=== PATIENT | female | born 1995 ===

== ENCOUNTER 2019-05-16 20:12 | Inpatient (IN) ==
[2019-05-16] MEDS ORDERED: PROPOFOL 200 MG/20 ML VIAL IV ONE (23:34)
[2019-05-16] MEDS ORDERED: BENZOCAINE/MENTHOL LOZENGE 18/BOX PO PRN (23:35)
[2019-05-16] MEDS ORDERED: ONDANSETRON 4 MG/2 ML VIAL ONE (23:35)
[2019-05-16] MEDS ORDERED: ACETAMINOPHEN 325 MG TABLET PO PRN (23:35)
[2019-05-16] MEDS ORDERED: ACETAMINOPHEN 1,000 MG/100 ML VIAL IV ONE (23:35)
[2019-05-16] MEDS ORDERED: SEVOFLURANE 1 UNIT/15 MINUTE INH ONE (23:35)
[2019-05-16] MEDS ORDERED: MAGNESIUM HYDROXIDE SUSP 30 ML UDCUP PO PRN (23:35)
[2019-05-16] MEDS ORDERED: MIDAZOLAM 2 MG/2 ML VIAL ONE (23:35)
[2019-05-16] MEDS ORDERED: ONDANSETRON 4 MG/2 ML VIAL IV PRN (23:35)
[2019-05-16] MEDS ORDERED: fentaNYL 100 MCG/2 ML VIAL ONE (23:35)
[2019-05-16] MEDS ORDERED: DOCUSATE SODIUM 100 MG CAPSULE PO PRN (23:35)
[2019-05-16] MEDS ORDERED: BISACODYL 10 MG SUPP RECTAL PRN (23:35)
[2019-05-16] MEDS ORDERED: SUCCINYLCHOLINE 200 MG/10 ML VIAL ONE (23:36)
[2019-05-16] MEDS ORDERED: LACTATED RINGERS 1,000 ML IV ONE (23:36)
[2019-05-16] MEDS ORDERED: LACTATED RINGERS 1,000 ML IV SCH (23:45)
[2019-05-17] MEDS ORDERED: MEPERIDINE 25 MG/1 ML VIAL IV PRN (00:46)
[2019-05-17] MEDS: ceFAZolin 1,000 MG in SYRINGE 1 EACH IV SCH ×2 (05:37→15:26)
[2019-05-17 05:46] LABS: Basophils % 0.5 % (0.0-0.8); Eosinophils % 0.7 % (0.00-10.9); Hematocrit 31.5 VOL% (35.7-47.0); Immature Granulocytes % 0.7 %; Immature Granulocytes Absolute 0.04 #; Lymphocytes # 1.3 10*3/uL (1.4-4.0); Lymphocytes % 21.6 % (21.3-54.2); Mean Corpuscular HGB Conc 31.7 GM/DL (32-36); Mean Corpuscular Volume 98.4 FL (87-102); Mean Platelet Volume 9.4 FL (9.6-12.0); Monocytes % 7.2 % (1.7-12.7); Neutrophils % 69.3 % (38.7-73.9); Platelet Count 199 T/CUMM (130-400); Red Cell Distribution Width 13.1 % (9.3-17.3); White Blood Count 5.8 T/CUMM (4-12)
[2019-05-17] MEDS: IBUPROFEN 800 MG TABLET PO PRN ×2 (08:58→20:10)
[2019-05-17] MEDS ORDERED: ceFAZolin 1,000 MG in SYRINGE 1 EACH IV ONE (15:01)
[2019-05-17 19:56] VITALS: BP 110/71
== END 2019-05-17 22:35 | disposition left against medical advice (07) | DRG 819 ==
LOC: EDUNIT# → N.ED 20:12 → N.EDINP 23:34 → N.OB 23:40
PROVIDERS: ADMIT Obstetrics & Gynecology; ATTEND Obstetrics & Gynecology

== ENCOUNTER 2021-07-11 09:07 | Inpatient (IN) ==
[2021-07-11] MEDS ORDERED: LABETALOL 100 MG TABLET PO ONE (10:39)
[2021-07-11 11:30] LABS: Bilirubin,Urine Negative (Negative); Blood, Urine Negative (Negative); Glucose,Urine (UA) >=500 mg/dL (Negative); Ketones,Urine 20 mg/dL (Negative); Mucus,Urine Occasional /LPF (Occasional); Nitrite,Urine Negative (Negative); Protein,Urine 30 MG/DL; RBC,Urine 1 /HPF (0-4); Squamous Epithelial Cell,Urine Occasional /HPF (0-10); Urine Appearance CLEAR (Clear); Urine Color Amber (Yellow); Urine Specific Gravity 1.016 (1.001-1.035); Urine Urobilinogen < 2.0 EU/DL (0.2-1.0)
[2021-07-11 11:50] LABS: Basophils % 0.2 % (0.0-0.8); Hematocrit 31.8 VOL% (35.7-47.0); Immature Granulocytes % 0.9 %; Immature Granulocytes Absolute 0.04 #; Lymphocytes # 0.6 10*3/uL (1.4-4.0); Lymphocytes % 11.9 % (21.3-54.2); Mean Corpuscular HGB Conc 31.4 GM/DL (32-36); Mean Corpuscular Volume 91.1 FL (87-102); Mean Platelet Volume 9.8 FL (9.6-12.0); Monocytes % 6.3 % (1.7-12.7); Neutrophils % 80.7 % (38.7-73.9); Platelet Count 204 T/CUMM (130-400); Red Blood Count 3.49 MC/CUMM (3.8-5.5); Red Cell Distribution Width 14.3 % (9.3-17.3); White Blood Count 4.6 T/CUMM (4-12)
[2021-07-11 12:05] LABS: Protein/Creatinine Ratio,Urine 0.6 RATIO
[2021-07-11 12:08] LABS: INR 0.9; PT Patient Result 10.3 SECS (10.5-12.0); Partial Thromboplastin Time 30.8 SECS (23.9-33.8)
[2021-07-11 12:09] LABS: Alanine Aminotransferase 52 U/L (13-56); Albumin 2.2 G/DL (3.4-5.0); Alkaline Phosphatase 163 U/L (45-117); Aspartate Amino Transferase 94 U/L (0-37); Bilirubin,Direct < 0.100 MG/DL (0.0-0.20); Bilirubin,Total < 0.39 MG/DL (0.20-1.00); Blood Urea Nitrogen 7 MG/DL (7-18); Calcium 8.3 MG/DL (8.5-10.1); Carbon Dioxide 20 MMOL/L (21-32); Estimated Glom Filtration Rate 150 ML/MIN; Glucose 168 MG/DL (74-106); Potassium 3.6 MMOL/L (3.5-5.1); Sodium 136 MMOL/L (136-145); Total Protein 5.9 G/DL (6.4-8.2); Uric Acid 5.1 MG/DL (2.6-6.0)
[2021-07-11] MEDS ORDERED: DEXTROSE 50% 25 GM/50 ML VIAL IV PRN ×2 (12:46→15:10)
[2021-07-11] MEDS ORDERED: GLUCAGON 1 MG VIAL IM PRN (12:46)
[2021-07-11] MEDS ORDERED: BETAMETH SODIUM PHOS/ACETATE 30 MG/5 ML VIAL IM SCH (13:00)
[2021-07-11] MEDS ORDERED: metFORMIN 500 MG TABLET PO SCH (17:00)
[2021-07-11] MEDS ORDERED: INSULIN LISPRO 100 UNIT/ML SUBCUT SCH (17:00)
[2021-07-11] MEDS: INSULIN REGULAR 100 UNIT/ML SUBCUT SCH ×2 (17:01→21:56)
[2021-07-11] MEDS ORDERED: INSULIN NPH 100 UNIT/ML SUBCUT SCH (21:00)
[2021-07-11] MEDS ORDERED: ZALEPLON 5 MG CAPSULE PO ONE (21:01)
[2021-07-11] MEDS: LABETALOL 100 MG TABLET PO SCH (21:58)
[2021-07-12] MEDS ORDERED: OXYTOCIN/LR 20 UNIT/1,000 ML BAG IV ONE ×4 (06:10→21:13)
[2021-07-12 07:49] LABS: Hematocrit 33.5 VOL% (35.7-47.0); Hemoglobin 10.3 GM/DL (12.0-16.0); Immature Granulocytes % 1.2 %; Immature Granulocytes Absolute 0.04 #; Lymphocytes # 0.6 10*3/uL (1.4-4.0); Lymphocytes % 18.4 % (21.3-54.2); Mean Corpuscular HGB Conc 30.7 GM/DL (32-36); Mean Corpuscular Volume 93.6 FL (87-102); Mean Platelet Volume 9.8 FL (9.6-12.0); Monocytes % 7.8 % (1.7-12.7); NRBC # 0.03 10*3/uL; Neutrophils % 72.6 % (38.7-73.9); Platelet Count 201 T/CUMM (130-400); Red Blood Count 3.58 MC/CUMM (3.8-5.5); Red Cell Distribution Width 14.5 % (9.3-17.3); White Blood Count 3.2 T/CUMM (4-12)
[2021-07-12] MEDS ORDERED: INSULIN LISPRO 100 UNIT/ML SUBCUT SCH (08:00)
[2021-07-12 08:22] LABS: Alanine Aminotransferase 47 U/L (13-56); Albumin 2.3 G/DL (3.4-5.0); Alkaline Phosphatase 167 U/L (45-117); Aspartate Amino Transferase 67 U/L (0-37); Bilirubin,Total < 0.39 MG/DL (0.20-1.00); Blood Urea Nitrogen 8 MG/DL (7-18); Calcium 8.6 MG/DL (8.5-10.1); Carbon Dioxide 18 MMOL/L (21-32); Estimated Glom Filtration Rate 150 ML/MIN; Glucose 118 MG/DL (74-106); Osmolality,Calculated 275.5 MOS/KG (273-304); Sodium 139 MMOL/L (136-145); Total Protein 6.4 G/DL (6.4-8.2); Uric Acid 5.9 MG/DL (2.6-6.0)
[2021-07-12] MEDS ORDERED: CITRIC ACID/SODIUM CITRATE 30 ML UDCUP ONE (11:30)
[2021-07-12] MEDS ORDERED: FAMOTIDINE 20 MG/2 ML VIAL IV ONE ×2 (11:30→12:02)
[2021-07-12] MEDS ORDERED: ceFAZolin 2,000 MG/50 ML DUPLEX IV ONE ×2 (11:31→12:02)
[2021-07-12] MEDS ORDERED: MIDAZOLAM 2 MG/2 ML VIAL ONE (11:46)
[2021-07-12] MEDS ORDERED: fentaNYL 100 MCG/2 ML VIAL ONE (11:46)
[2021-07-12] MEDS ORDERED: miSOPROStoL 200 MCG TABLET ONE (11:47)
[2021-07-12] MEDS ORDERED: TRANEXAMIC ACID 1,000 MG/10 ML VIAL ONE (11:47)
[2021-07-12] MEDS ORDERED: METHYLERGONOVINE 0.2 MG/1 ML AMP ONE (11:48)
[2021-07-12] MEDS ORDERED: CARBOPROST TROMETHAMINE 250 MCG/ML AMP IM ONE (11:48)
[2021-07-12] MEDS ORDERED: OXYTOCIN 10 UNIT/ML VIAL ONE (11:48)
[2021-07-12 12:01] LABS: Cord Arterial Blood HCO3 11.8 MMOL/L
[2021-07-12 12:02] LABS: Cord Venous Blood HCO3 16.9 MMOL/L; Cord Venous Blood PCO2 54.1 MMHG; Cord Venous Blood PO2 51.6 MMHG
[2021-07-12] MEDS ORDERED: CITRIC ACID/SODIUM CITRATE 30 ML UDCUP PO ONE (12:02)
[2021-07-12 12:09] LABS: Bilirubin,Urine Negative (Negative); Blood, Urine Negative (Negative); Glucose,Urine (UA) 150 mg/dL (Negative); Ketones,Urine 80 mg/dL (Negative); Mucus,Urine Occasional /LPF (Occasional); Nitrite,Urine Negative (Negative); Protein,Urine 100 MG/DL; RBC,Urine 3 /HPF (0-4); Squamous Epithelial Cell,Urine Occasional /HPF (0-10); Urine Appearance CLEAR (Clear); Urine Color Amber (Yellow); Urine Specific Gravity 1.031 (1.001-1.035)
[2021-07-12] MEDS ORDERED: LACTATED RINGERS 1,000 ML IV SCH ×2 (12:30→13:00)
[2021-07-12] MEDS ORDERED: SUCCINYLCHOLINE 200 MG/10 ML VIAL ONE (12:31)
[2021-07-12] MEDS ORDERED: ETOMIDATE 40 MG/20 ML VIAL IV ONE (12:31)
[2021-07-12] MEDS ORDERED: SEVOFLURANE 1 UNIT/15 MINUTE INH ONE (12:33)
[2021-07-12] MEDS ORDERED: diphenhydrAMINE 50 MG/1 ML VIAL IV PRN ×3 (12:44→15:40)
[2021-07-12] MEDS ORDERED: ONDANSETRON 4 MG/2 ML VIAL IV PRN ×3 (12:44→21:13)
[2021-07-12] MEDS ORDERED: hydrOXYzine HCL 25 MG/1 ML VIAL IM PRN (12:44)
[2021-07-12] MEDS: HYDROmorphone 2 MG/1 ML VIAL IV PRN ×2 (12:56→23:00)
[2021-07-12] MEDS: KETOROLAC 30 MG/1 ML VIAL IV SCH ×2 (12:57→21:54)
[2021-07-12] MEDS ORDERED: ACETAMINOPHEN INJ 1,000 MG/100 ML VIAL IV ONE ×2 (13:00→16:30)
[2021-07-12] MEDS ORDERED: SODIUM CHLORIDE 0.9% 1,000 ML IV SCH (13:00)
[2021-07-12] MEDS ORDERED: diphenhydrAMINE CAP 25 MG CAPSULE PO PRN ×2 (15:40→15:59)
[2021-07-12] MEDS ORDERED: methylPREDNISolone SOD SUC 125 MG/2 ML VIAL IV PRN (15:40)
[2021-07-12] MEDS ORDERED: DEXAMETHASONE 4 MG TABLET PO ONE (15:40)
[2021-07-12] MEDS ORDERED: methylPREDNISolone SOD SUC 125 MG/2 ML VIAL IM PRN (15:40)
[2021-07-12] MEDS ORDERED: ACETAMINOPHEN 325 MG TABLET PO PRN (15:40)
[2021-07-12] MEDS ORDERED: MECLIZINE 25 MG TABLET PO PRN (15:40)
[2021-07-12] MEDS ORDERED: ONDANSETRON 4 MG TABLET PO PRN (15:40)
[2021-07-12 15:56] LABS: Ferritin 38.1 ng/ml (8-252)
[2021-07-12] MEDS: DEXAMETHASONE 4 MG TABLET PO SCH (16:43)
[2021-07-12] MEDS ORDERED: CASIRIVIMAB/IMDEVIMAB 1,200 MG in SODIUM CHLORIDE 0.9% 100 ML IV ONE (17:00)
[2021-07-12] MEDS: INSULIN REGULAR 100 UNIT/ML SUBCUT SCH (17:06)
[2021-07-12 17:22] LABS: INR 0.9
[2021-07-12] MEDS ORDERED: INSULIN NPH 100 UNIT/ML SUBCUT SCH (21:00)
[2021-07-12] MEDS ORDERED: SIMETHICONE CHEW 80 MG TABLET PO PRN (21:13)
[2021-07-12] MEDS ORDERED: RHO(D) IMMUNE GLOBULIN 300 MCG SYRINGE IM ONE (21:13)
[2021-07-12] MEDS ORDERED: MAGNESIUM HYDROXIDE SUSP 30 ML UDCUP PO PRN (21:13)
[2021-07-12] MEDS ORDERED: INSULIN LISPRO 100 UNIT/ML SUBCUT ONE (21:36)
[2021-07-12] MEDS: LABETALOL 100 MG TABLET PO SCH ×2 (21:58→22:11)
[2021-07-12] MEDS: ASCORBIC ACID 500 MG TABLET PO SCH (22:08)
[2021-07-12] MEDS: DOCUSATE SODIUM 100 MG CAPSULE PO SCH (22:25)
[2021-07-13] MEDS: FAMOTIDINE 20 MG TABLET PO SCH ×3 (00:25→21:00)
[2021-07-13] MEDS: ceFAZolin 2,000 MG in SODIUM CHLORIDE 0.9% 100 ML IV SCH ×2 (00:26→05:29)
[2021-07-13] MEDS: KETOROLAC 30 MG/1 ML VIAL IV SCH ×3 (00:31→09:31)
[2021-07-13] MEDS ORDERED: ceFAZolin 2,000 MG/50 ML DUPLEX IV ONE (05:27)
[2021-07-13] MEDS: IBUPROFEN 800 MG TABLET PO SCH ×2 (05:45→18:25)
[2021-07-13 06:35] LABS: Basophils % 0.2 % (0.0-0.8); Hematocrit 28.5 VOL% (35.7-47.0); Hemoglobin 8.8 GM/DL (12.0-16.0); Immature Granulocytes % 0.7 %; Immature Granulocytes Absolute 0.04 #; Lymphocytes # 0.7 10*3/uL (1.4-4.0); Mean Corpuscular HGB Conc 30.9 GM/DL (32-36); Mean Platelet Volume 9.7 FL (9.6-12.0); Monocytes % 3.7 % (1.7-12.7); NRBC # 0.02 10*3/uL; Neutrophils % 82.4 % (38.7-73.9); Platelet Count 182 T/CUMM (130-400); Red Cell Distribution Width 14.7 % (9.3-17.3); White Blood Count 5.7 T/CUMM (4-12)
[2021-07-13 07:03] LABS: Ferritin 36.8 ng/ml (8-252)
[2021-07-13] MEDS: INSULIN REGULAR 100 UNIT/ML SUBCUT SCH ×3 (07:36→18:28)
[2021-07-13] MEDS: ASCORBIC ACID 500 MG TABLET PO SCH ×2 (08:50→21:00)
[2021-07-13] MEDS: LABETALOL 100 MG TABLET PO SCH ×2 (08:50→21:00)
[2021-07-13] MEDS: DEXAMETHASONE 4 MG TABLET PO SCH (08:51)
[2021-07-13] MEDS: DOCUSATE SODIUM 100 MG CAPSULE PO SCH ×2 (08:52→21:28)
[2021-07-13] MEDS: CHOLECALCIFEROL 1,000 UNIT TABLET PO SCH (08:52)
[2021-07-13] MEDS: ZINC GLUCONATE 50 MG TABLET PO SCH (08:52)
[2021-07-13] MEDS: MULTIVITAMIN (PRENATAL) TABLET PO SCH (08:53)
[2021-07-13] MEDS ORDERED: DEXTROSE 50% 25 GM/50 ML VIAL IV PRN (09:57)
[2021-07-13] MEDS ORDERED: GLUCAGON 1 MG VIAL IM PRN (09:57)
[2021-07-13] MEDS ORDERED: INSULIN LISPRO 100 UNIT/ML SUBCUT SCH (11:00)
[2021-07-13] MEDS ORDERED: INSULIN NPH 100 UNIT/ML SUBCUT SCH (21:00)
[2021-07-14] MEDS: IBUPROFEN 800 MG TABLET PO SCH ×2 (04:55→12:11)
[2021-07-14] MEDS: CHOLECALCIFEROL 1,000 UNIT TABLET PO SCH (08:31)
[2021-07-14] MEDS: MULTIVITAMIN (PRENATAL) TABLET PO SCH (08:31)
[2021-07-14] MEDS: FAMOTIDINE 20 MG TABLET PO SCH (08:31)
[2021-07-14] MEDS: DOCUSATE SODIUM 100 MG CAPSULE PO SCH (08:31)
[2021-07-14] MEDS: ZINC GLUCONATE 50 MG TABLET PO SCH (08:31)
[2021-07-14] MEDS: ASCORBIC ACID 500 MG TABLET PO SCH (08:32)
[2021-07-14] MEDS: DEXAMETHASONE 4 MG TABLET PO SCH (08:32)
[2021-07-14] MEDS: LABETALOL 100 MG TABLET PO SCH (08:32)
[2021-07-14] MEDS: INSULIN REGULAR 100 UNIT/ML SUBCUT SCH ×3 (09:13→12:22)
[2021-07-14] MEDS ORDERED: MEASLES/MUMPS/RUBELLA VACCINE 0.5 ML VIAL SUBCUT ONE (15:57)
== END 2021-07-14 16:30 | disposition home or self-care (01) | DRG 540 ==
LOC: N.LDOUT 09:07 → N.LD 09:09
PROVIDERS: ADMIT Obstetrics & Gynecology; ATTEND Obstetrics & Gynecology
PROC: LDCSECT (ICD-10-PCS; 2021-07-12 11:45)